=== PATIENT | male | born 1980 | race Caucasian/White ===

== ENCOUNTER 2020-03-08 18:01 | Emergency (ER) | payer OTHER ==
[2020-03-08 18:09] VITALS: TEMP 98; BMI 32.1
[2020-03-08] MEDS ORDERED: SODIUM CHLORIDE 0.9% 500 ML INFUS.BAG IV ONE ×2 (18:53→19:37)
--- NOTE | 2020-03-08 19:28 | PDOC ---
History of Present Illness - General Chief Complaint: Blood Pressure Problem Stated Complaint: HTN Time Seen by Provider: 03/08/20 18:51 Past History - Medical History Allergies/Adverse Reactions: Allergies Allergy/AdvReac Type Severity Reaction Status Date / Time No Known Allergies Allergy Verified 03/08/20 18:09 COPD: No HTN: Yes - Psycho-Social/Smoking History Smoking History: Never smoked *Physical Exam - Vital Signs Last Vital Signs Temp Pulse Resp BP Pulse Ox 98 F 123 H 18 126/74 94 L 03/08/20 18:06 03/08/20 18:06 03/08/20 18:06 03/08/20 18:06 03/08/20 18:06 ED Treatment Course - LABORATORY CBC & Chemistry Diagram: 03/08/20 19:30 03/08/20 19:30 Medical Decision Making - Medical Decision Making 03/08/20 19:40 HPI: 39yo M no PMH, hx obesity, hx COVID+ 4mo ago (multiple negative tests since), presents from home c/o 2 days of generalized weakness and intermittent R eye twitching. Endorses mild headache yesterday that resolved with tylenol. Denies new SOB or BOWIE, but endorses 2 years of worsening breathing when lying down/going to sleep. Denies focal weakness, difficulty walking or talking, numbness/tingling, rhinorrhea, congestion, cough, F/C, N/V, diaphoresis, abdominal pain, CP, SOB, D/C, sick contacts, recent travel, hx DVT/PE, malignancy, recent surgery, leg swelling, calf pain, smoking, hormone use. No PCP but last check up 5mo ago and told slightly high CHL but otherwise normal Hypoxic 94% on RA, 100% on 2L NC, tachycardic 120s -Labs including inflammatory markers (COVID), D-dimer (low risk PE), cardiac profile (ACS/GA) -COVID -Flu -CXR -EKG -IVF -O2 NC 2L 03/08/20 20:47 Labs reviewed. No concerning findings. EKG reviewed: sinus tachycardia, 114bpm, L anterior fascicular block, normal axis, normal intervals, no TWIs, no ST elevations or depressions CXR reviewed: No acute pathology 03/08/20 20:51 Pt appears mild-moderately SOB with ambulation but pt denies SOB and states that's his normal breathing. Pt's O2 sat remains 94-100% on RA with ambulation, 96-100% at rest on RA. Pt's HR remains elevated 110s at rest and 110s-120s with ambulation. 03/08/20 21:53 Pt sleeping and remains tachycardic to 110. Could be his baseline or 2/2 obesity, but will obtain CTA chest to eval for PE, malignancy, COVID, or other pulmonary pathologies. 03/08/20 23:33 CTA negative Pt feels better, asymptomatic. Safe for d/c Discharge - Discharge Information Problems reviewed: Yes Clinical Impression/Diagnosis: Hypoxia, Fatigue, Tachycardia Condition: Improved Disposition: HOME - Admission No - Follow up/Referral Referrals: David Gambino MD [Staff Physician] - - Patient Discharge Instructions Patient Printed Discharge Instructions: DI for Tachycardia, DI for Hypoxia, [facility]-Coronavirus Instructions, [facility] COVID-19 Isolation Protocol Additional Instructions: Lo collier visto en el Departamento de Emergencias por jensen fatiga y espasmos ocula res. Radha pruebas mostraron que stephanie abdias frecuencia cardaca rpida (taquicardia) y abdias baja saturacin de oxgeno (hipoxia). Jensen electrocardiograma, radiografa de trax, tomografa computarizada de trax y los anlisis de laboratorio no muestran signos de abdias afeccin emergente deann un ataque cardaco o neumona o un cogulo en los pulmones. Necesita abdias evaluacin adicional por parte de un cardilogo para detectar jensen hipoxia y taquicardia. Le hemos remitido a un cardilogo (katrin melendrez), el Dr. Gambino; llame a jensen consultorio por la maana para programar abdias memo de seguimiento. Es muy probable que radha sntomas actuales se deban a abdias infeccin viral de las vas respiratorias superiores, deann un resfriado o coronavirus / COVID-19. En fabian momento, lo ms importante es mantenerse hidratado y aislarse en casa fany 2 semanas. Llame a jensen mdico de atencin primaria en el plazo de 1 semana para realizar un seguimiento. Recibir abdias llamada nuestra para programar abdias memo de atencin primaria. Regrese al Departamento de Emergencias de inmediato si experimenta dolor en el pecho, dificultad para respirar, desmayo o cualquier otro sntoma nuevo o que empeora. You have been seen in the Emergency Department for your fatigue and eye twitching. Your tests showed that you had a fast heart rate (tachycardia) and a low oxygen saturation (hypoxia). Your EKG, chest X-ray, chest CT scan, and labs show no signs concerning for an emergent condition such as a heart attack or pneumonia or clot in your lungs. You need further evaluation by a shake sawyer for your hypoxia and tachycardia. We have given you a referral to a C Software Engineer (heart doctor) Dr Gambino - give his office a call in the morning to set up a follow-up appointment. Your current symptoms are most likely due to a viral upper respiratory infection such as a cold or Coronavirus/COVID-19. At this time it's most important to stay hydrated and self-isolate at home for 2 weeks. Call your primary care doctor within 1 week for follow-up. You will get a call from us to set up a primary care appointment. Return to the Emergency Department immediately if you experience chest pain, difficulty breathing, passing out, or any other new or worsening symptom. Print Language: UZBEK - Post Discharge Activity
[2020-03-08 19:43] LABS: BASO % 0.5 % (0-2.0); HEMOGLOBIN 15.6 GM/dL (11.7-16.9); LYMPH % 22.7 % (8-40); MCH 28.8 pg (25.7-33.7); MCHC 33.9 g/dl (32.0-35.9); MEAN PLT VOLUME 7.6 fl (7.5-11.1); MONO % 7.7 % (3.8-10.2); NEUT % 68.1 % (42.8-82.8); PLATELET COUNT 246 K/MM3 (134-434); RBC 5.41 M/mm3 (4.00-5.60); RDW 13.3 % (11.9-15.9); WHITE BLOOD COUNT 10.5 K/mm3 (4.0-10.0)
--- NOTE | 2020-03-08 19:53 | PDOC ---
Documentation entered by Mookie Cobos SCRIBE, acting as scribe for Unique Silver MD. Unique Silver MD: This documentation has been prepared by the scribe, Mookie Talbert SCRIBE, under my direction and personally reviewed by me in its entirety. I confirm that the documentation accurately reflects all work, treatment, procedures, and medical decision making performed by me. Attending Attestation - Resident Resident Name: iNcolasa Nascimento - ED Attending Attestation I have performed the following: I have examined & evaluated the patient, The case was reviewed & discussed with the resident, I agree w/resident's findings & plan, Exceptions are as noted - HPI HPI: 03/08/20 19:50 The patient is a 39 year old male with a significant past medical history of COVID positive four months ago who presents to the emergency department for evaluation of generalized weakness and eye twitching that began two days ago. The patient reports feeling tired. The patient denies chest/abdominal/back pain, cough, and shortness of breath. Denies fever, chills, nausea, vomiting, and/or any GI symptoms. Denies any symptoms. Denies any other symptoms. Allergies: NKA - Physicial Exam PE: 03/08/20 18:52 GENERAL: Well developed, well nourished. Awake and alert. No acute distress. HEENT: Normocephalic, atraumatic. PERRLA, EOMI. No conjunctival pallor. Sclera are non- icteric. Moist mucous membranes. Oropharynx is clear. NECK: Supple. Full ROM. No JVD. Carotid pulses 2+ and symmetric, without bruits. No thyromegaly. No lymphadenopathy. CARDIOVASCULAR: +tachycardic Regular rhythm. No murmurs, rubs, or gallops. Distal pulses are 2+ and symmetric. PULMONARY: +tachypnic Lungs cta b/l, no wheezing ABDOMINAL: Soft. Non-tender. Non-distended. No rebound or guarding. No organomegaly. Normoactive bowel sounds. MUSCULOSKELETAL: Normal range of motion at all joints. No bony deformities or tenderness. No CVA tenderness. EXTREMITIES: No cyanosis. No clubbing. No edema. No calf tenderness. SKIN: Warm and dry. Normal capillary refill. No rashes. No jaundice. NEUROLOGICAL: Alert, awake, appropriate. Cranial nerves 2-12 intact. No deficits to light kirna ch and temperature in face, upper extremities and lower extremities. No motor deficits in the in face, upper extremities and lower extremities. Normoreflexic in the upper and lower extremities. Normal speech. Toes are down-going bilaterally. Gait is normal without ataxia. PSYCHIATRIC: Cooperative. Good eye contact. Appropriate mood and affect. 03/08/20 19:52 - Medical Decision Making 03/08/20 20:27 labs were essentially unremarkable we walked the pt and he has no shortness of breath and his lungs are clear, his pulse ox =95 on room air d dimer is negative troponin is negative 03/08/20 23:34 cta chest is negative and the pt will be discharged home we have arranged for this patient to have follow up with [facility] group Discharge - Discharge Information Problems reviewed: Yes Clinical Impression/Diagnosis: Fatigue, Tachycardia Condition: Improved Disposition: HOME - Follow up/Referral Referrals: David Gambino MD [Staff Physician] - - Patient Discharge Instructions Patient Printed Discharge Instructions: DI for Tachycardia, DI for Hypoxia, [facility]-Coronavirus Instructions, R-[facility] COVID-19 Isolation Protocol Additional Instructions: Lo collier visto en el Departamento de Emergencias por jensen fatiga y espasmos oculares. Radha pruebas mostraron que stephanie abdias frecuencia cardaca rpida (taquic ardia) y abdias baja saturacin de oxgeno (hipoxia). Jensen electrocardiograma, radiografa de trax, tomografa computarizada de trax y los anlisis de laboratorio no muestran signos de abdias afeccin emergente deann un ataque cardaco o neumona o un cogulo en los pulmones. Necesita abdias evaluacin adicional por parte de un cardilogo para detectar jensen hipoxia y taquicardia. Le hemos remitido a un cardilogo (katrin melendrez), el Dr. Gambino; llame a jensen consultorio por la maana para programar abdias memo de seguimiento. Es muy probable que radha sntomas actuales se deban a abdias infeccin viral de las vas respiratorias superiores, deann un resfriado o coronavirus / COVID-19. En fabian momento, lo ms importante es mantenerse hidratado y aislarse en casa fany 2 semanas. Llame a jensen mdico de atencin primaria en el plazo de 1 semana para realizar un seguimiento. Recibir abdias llamada nuestra para programar abdias memo de atencin primaria. Regrese al Departamento de Emergencias de inmediato si experimenta dolor en el pecho, dificultad para respirar, desmayo o cualquier otro sntoma nuevo o que empeora. You have been seen in the Emergency Department for your fatigue and eye twitching. Your tests showed that you had a fast heart rate (tachycardia) and a low oxygen saturation (hypoxia). Your EKG, chest X-ray, chest CT scan, and labs show no signs concerning for an emergent condition such as a heart attack or pneumonia or clot in your lungs. You need further evaluation by a balance screwhead polisher for your hypoxia and tachycardia. We have given you a referral to a Leather Case Finisher (heart doctor) Dr Gambino - give his office a call in the morning to set up a follow-up appointment. Your current symptoms are most likely due to a viral upper respiratory infection such as a cold or Coronavirus/COVID-19. At this time it's most important to stay hydrated and self-isolate at home for 2 weeks. Call your primary care doctor within 1 week for follow-up. You will get a call from us to set up a primary care appointment. Return to the Emergency Department immediately if you experience chest pain, difficulty breathing, passing out, or any other new or worsening symptom. Print Language: BENGALI - Post Discharge Activity
[2020-03-08 20:00] LABS: ALK PHOS 61 U/L (45-117); ANION GAP 5 MMOL/L (8-16); BILIRUBIN,TOTAL 0.5 mg/dL (0.2-1); BLOOD UREA NITROGEN 15.3 mg/dL (7-18); CALCIUM 9.1 mg/dL (8.5-10.1); CHLORIDE 106 mmol/L (98-107); CO2 29 mmol/L (21-32); GLUCOSE,RANDOM 118 mg/dL (74-106); MAGNESIUM 2.2 mg/dL (1.8-2.4); POTASSIUM 4.2 mmol/L (3.5-5.1); SGOT/AST 31 U/L (15-37); SGPT/ALT 59 U/L (13-61); SODIUM 140 mmol/L (136-145); TOT PROT 7.7 g/dl (6.4-8.2)
[2020-03-08 20:12] LABS: LDH 223 U/L (87-246)
[2020-03-08 20:15] LABS: INR 1.02 (0.83-1.09)
[2020-03-08 20:18] LABS: ACTIVATED PTT 31.2 SECONDS (25.2-36.5)
[2020-03-08 23:42] VITALS: BP 130/87; PULSE 95
--- NOTE | 2020-03-09 11:49 | EKG ---
Test Reason : Blood Pressure : / mmHG Vent. Rate : 114 BPM Atrial Rate : 114 BPM P-R Int : 142 ms QRS Dur : 082 ms QT Int : 336 ms P-R-T Axes : 031 -59 032 degrees QTc Int : 463 ms SINUS TACHYCARDIA LEFT ANTERIOR FASCICULAR BLOCK ABNORMAL ECG NO PREVIOUS ECGS AVAILABLE Confirmed by PETER DURBIN MD ([id number]) on 03/09/2020 11:48:34 AM Referred By: Confirmed By:PETER DURBIN MD
== END 2020-03-08 23:43 | disposition home or self-care (01) ==
LOC: JER 18:01
DX: R53.83 Other fatigue (principal); R00.0 Tachycardia, unspecified
CPT/HCPCS: 36415; 71045-TC-FY; 71275-TC; 80053; 82550; 82553; 82728; 83615; 83735; 83880; 84439; 84443; 84484; 85025; 85379; 85610; 85730; 87804; 93005; 93010; 99285-25; C9803; Q9967; U0003